=== PATIENT | male | born 1960 | race Caucasian/White ===

== ENCOUNTER → 2016-05-04 | Outpatient (CLI) | payer BC ==
[~2016-05-04] MED LIST: B COMPLEX1 TAB PO; B-12500 MC1; COLACE PO; DOCUSATE SODIU100 MG PO; FISH OIL 1,0001 EACH PO; FISH OIL300 MG; FLOMAX0.4 M1 PO; GEMFIBROZIL1 GM; GEMFIBROZIL1 GM MC; HYDROCODON-ACE1 EAC9 PO; HYDROCODONE APAP; LOPID600 MG PO; MELOXICAM7.5 MG; MOBIC; MOBIC PO; MULTI VITAMIN1 EACH PO; ZANAFLEX
[2016-05-04 12:49] LABS: CREATININE SERUM 0.9 mg/dL (0.6-1.4); GLOM FILT RATE Estimated 94.5 mL/min (>60)
[2016-05-04 13:13] LABS: ALBUMIN SERUM 4.5 g/dL (3.5-5.0); BILIRUBIN, DIRECT 0.1 mg/dL (0.0-0.2); BILIRUBIN,INDIRECT 0.5 mg/dL (0.0-0.9); BILIRUBIN,TOTAL 0.6 mg/dL (0.2-2.0); PROTEIN TOTAL SERUM 7.4 g/dL (6.0-8.3)
== END | disposition home or self-care (01) ==
LOC: CLAB 11:42
PROVIDERS: Internal Medicine Endocrinology, Diabetes & Metabolism
DX: E78.2 Mixed hyperlipidemia (principal)
CPT/HCPCS: 36415; 80061; 80076; 82565; 82947; 83036; 84520

== ENCOUNTER → 2016-08-04 | Day surgery (SDC) | payer BC ==
--- NOTE | ~2016-08-04 | OR ---
Unit #: [id number] #: [id number] Patient: LIZZY MCGOWAN [id number] [facility]. [place], [place] [address] [id number] MR#: [id number] NAME: LIZZY MCGWOAN ROOM: Date of Procedure: 08/04/2016 Admission Date: 08/04/2016 Surgeon: Jesus Philippe III, M.D. : 1960 Attending Physician: Jesus Philippe III, M.D. Primary Care Physician: Joseph Ramirez M.D. OPERATIVE REPORT PREOPERATIVE DIAGNOSIS Screening colonoscopy. POSTOPERATIVE DIAGNOSIS Right colon mass. PROCEDURES PERFORMED Colonoscopy with snare polypectomy and tattooing of right colon mass. ANESTHESIA MAC. SPECIMENS Polyp to Pathology. COMPLICATIONS None apparent. INDICATIONS FOR PROCEDURE This is a 55-year-old gentleman, who is status post appendectomy and bilateral partial nephrectomies. He is here today for colonoscopy. DESCRIPTION OF PROCEDURE After consent was obtained, the patient was brought to the endoscopy suite and placed in the left lateral decubitus position. We titrated the above sedation. I performed a rectal exam and did not feel any masses. The scope was placed within the rectal vault. Air was insufflated and I navigated the scope all the way to the cecum without any difficulty. He had normal mucosa. No evidence of a no evidence of any diverticular disease. He did have a polyp that was hiding behind a fold. As I was able to grasp it with cold biopsy forceps, it did look like a fairly large-sized pedunculated polyp with a fairly broad stalk. I was able to get a snare around the base of it. I then loosened up on that, because I did want to take too much of the sidewall of the colon and run the risk of perforation. As I slowly burn through the polyp, I was much too large to go through the suction port. I did inject the area with methylene blue to edin the region in case he needed that area resected. I then grasp holded the polyp with the suction channel and pulled it out manually. It was almost 2 cm in diameter. I then reinserted the scope and I went back and did not see any other masses. The scope was retroflexed within the rectum. No other masses were seen. The scope was then carefully withdrawn. The patient tolerated the procedure without any problems and Unit #: [id number] #: [id number] Patient: LIZZY MCGOWAN returned to the recovery room in stable condition. I will have him call my office next week for biopsy results. Dictated by... Jesus Philippe III, M.D. VCL/soy TD: 08/04/2016 16:13 JOB #: [id number] OPERATIVE REPORT Page 1 of 1 X Jesus Philippe III, MD PROCEDURE OPERATIVE NOTE
== END | disposition home or self-care (01) ==
LOC: COPS 10:05
DX: Z12.11 Encounter for screening for malignant neoplasm of colon (principal); D12.2 Benign neoplasm of ascending colon; Z90.5 Acquired absence of kidney; Z85.528 Personal history of other malignant neoplasm of kidney; M19.90 Unspecified osteoarthritis, unspecified site
CPT/HCPCS: 88305; J2250